=== PATIENT | male | born 1990 | race Caucasian/White ===

== ENCOUNTER 2018-11-23 13:53 | Emergency (ER) | payer SELFPAY ==
[~2018-11-23] VITALS: Ht 172.7 cm; Wt 67.6 kg
[2018-11-23 14:01] VITALS: Ht 172.7 cm; Wt 67.6 kg
[2018-11-23 15:41] VITALS: BP 159/75
== END 2018-11-23 15:41 | disposition home or self-care (01) ==
LOC: ED 13:53
DX: K08.89 Other specified disorders of teeth and supporting structures (principal); J45.909 Unspecified asthma, uncomplicated